=== PATIENT | female | born 1955 | race Hispanic/Latino ===

== ENCOUNTER 2017-12-26 12:45 | Outpatient (CLI) | payer BC ==
--- NOTE | 2017-12-30 18:00 | Magnetic Resonance Report ---
MR scan of the cranium was performed with and without contrast. Pulse sequences included: 1. T1 weighted sagittal and axial images without contrast and T1 axial and coronal images with contrast 2. T2 weighted axial and coronal images 3. FLAIR axial images 4. Diffusion-weighted axial images 5. Apparent diffusion coefficient images 6. T2 gradient echo images Views of the posterior fossa showed a normal craniocervical junction. Cerebellar pontine angles were normal with normal seventh-eighth nerve complexes. Brainstem and was normal. Small areas of increased signal were seen in the right cerebellum. Large cisterns were seen around the brainstem and cerebellum. The ventricular system showed moderate dilatation but no distortion. Images of the hemispheres showed multiple areas increased signal in the periventricular white matter with numerous black holes. Streeter's fingers were present. Sinuses, pituitary, flow voids in the [place], orbits, and basal ganglia were normal. There are no abnormal areas of enhancement with contrast. Impression: Abnormal MR scan of the cranium with and without contrast 1. extensive white matter lesions over the hemispheres 2. multiple black holes This study was compared with the patient's previous study of 09/04/2016 and no changes are appreciated
== END 2017-12-26 12:46 | disposition home or self-care (01) ==
LOC: SPVIMAG 12:45
PROVIDERS: ATTEND Specialist
DX: G35 Multiple sclerosis (principal); R93.8 Abnormal findings on diagnostic imaging of other specified body structures
CPT/HCPCS: 70553; A9577

== ENCOUNTER 2018-02-23 10:59 | Outpatient (CLI) | payer BC ==
--- NOTE | 2018-02-26 12:57 | Magnetic Resonance Report ---
MR scan of the cranium was performed with and without contrast. Pulse sequences included: 1. T1 weighted sagittal and axial images without contrast and T1 axial and coronal images with contrast 2. T2 weighted sagittal, axial and coronal images 3. FLAIR axial images 4. Diffusion-weighted axial images 5. Apparent diffusion coefficient images 6. gradient echo axial images Views of the posterior fossa showed a normal craniocervical junction. Cerebellar pontine angles were normal with normal seventh-eighth nerve complexes. Brainstem was normal. Cerebellum showed two areas of increased signal in the right cerebellar hemisphere The ventricular system showed no dilatation or distortion. Images of the hemispheres showed numerous areas of increased signal in the periventricular white matter with associated black holes and Streeter's fingers. Sinuses, pituitary, flow voids in the [place], orbits, and basal ganglia were normal. There are no abnormal areas of enhancement with contrast. Impression: Abnormal MR scan of the cranium with and without contrast 1. multiple white matter lesions consistent with the diagnosis of multiple sclerosis This study was compared to the patient's earlier study of 12/26/2017 and no change is evident
== END 2018-02-23 11:00 | disposition home or self-care (01) ==
LOC: MRI 10:59
PROVIDERS: ATTEND Specialist
DX: R93.0 Abnormal findings on diagnostic imaging of skull and head, not elsewhere classified (principal)
CPT/HCPCS: 70553; A9577